=== PATIENT | male | born 1950 | race Hispanic/Latino ===

== ENCOUNTER 2023-07-03 11:07 | Observation (INO) | payer MEDICARE ==
[~2023-07-03] VITALS: Ht 165.1 cm; Wt 92.5 kg
[2023-07-03] MEDS ORDERED: SODIUM CHLORIDE 0.9% 1000ML 1,000 ML IV STA (12:21)
[2023-07-03 12:37] LABS: BASOPHILS # (AUTO) 0.1 (0.0-0.1); BASOPHILS % 0.3 % (0.0-1.0); EOSINOPHILS # (AUTO) 2.3 (0.0-0.4); EOSINOPHILS % 5.6 % (0.0-6.0); LYMPHOCYTES # (AUTO) 6.2 (1.0-3.2); LYMPHOCYTES % 15.4 % (18.0-39.1); MEAN CORPUSCULAR HEMOGLOBIN 31.5 pg (28-32); MEAN CORPUSCULAR HGB CONC 31.1 g/dL (31-35); MEAN CORPUSCULAR VOLUME 101.1 fL (81-99); MONOCYTES # (AUTO) 2.4 (0.2-0.8); MONOCYTES % 5.8 % (4.4-11.3); NEUTROPHILS # (AUTO) 21.1 (2.1-6.9); RED BLOOD COUNT 1.81 x10e6/uL (4.3-5.7); RED CELL DISTRIBUTION WIDTH 22.1 % (11.7-14.4); WHITE BLOOD COUNT 40.56 x10e3/uL (4.8-10.8)
[2023-07-03 12:38] LABS: HEMOGLOBIN 5.7 g/dL (14.0-18.0); PLATELET COUNT 45 x10e3/uL (140-360)
[2023-07-03 12:39] LABS: HEMATOCRIT 18.3 % (38.2-49.6)
[2023-07-03 12:49] LABS: INR 1.15; PROTHROMBIN TIME 14.9 seconds (11.9-14.5)
[2023-07-03 12:50] LABS: PARTIAL THROMBOPLASTIN TIME 28.7 seconds (23.8-35.5)
[2023-07-03 12:58] LABS: ANION GAP 11.4 mmol/L (8-16); CREATININE, SERUM 1.11 mg/dL (0.72-1.25); POTASSIUM 4.4 mmol/L (3.5-5.1)
[2023-07-03 12:59] LABS: ALBUMIN 4.1 g/dL (3.5-5.0); ALBUMIN/GLOBULIN RATIO 1.7 (0.8-2.0); BILIRUBIN,TOTAL 0.3 mg/dL (0.2-1.2); CALCIUM 8.8 mg/dL (8.4-10.2); MAGNESIUM 1.6 MG/DL (1.3-2.1); TOTAL PROTEIN 6.5 g/dL (6.5-8.1)
[2023-07-03 13:01] LABS: BACTERIA,URINE FEW /HPF; BILIRUBIN,URINE NEGATIVE (NEGATIVE); CLARITY,URINE CLEAR (CLEAR); COLOR,URINE YELLOW (YELLOW); EPITHELIAL CELLS,URINE FEW /LPF; GLUCOSE, URINE NEGATIVE (NEGATIVE); KETONES,URINE TRACE (NEGATIVE); LEUKOCYTE ESTERASE ,URINE NEGATIVE (NEGATIVE); NITRITE,URINE NEGATIVE (NEGATIVE); PH,URINE 5.5 (5 - 7); PROTEIN,URINE DIPSTICK NEGATIVE (NEGATIVE); RBC,URINE 0-5 /HPF (0-5); URINE UROBILINOGEN 1 mg/dL (0.2 - 1); WBC,URINE (MAN) 0-5 /HPF (0-5)
[2023-07-03 13:06] LABS: TROPONIN I 0.002 ng/mL (0-0.300)
[2023-07-03 13:31] LABS: FOLATE 15.5 ng/mL (7.0-15.4)
[2023-07-03 13:39] LABS: EOSINOPHILS % (MANUAL) 6 % (0-7); LYMPHOCYTES % (MANUAL) 11 % (19-48); METAMYELOCYTES % (MANUAL) 3 % (0-0); MONOCYTES % (MANUAL) 3 % (3.4-9.0); MYELOCYTES % (MANUAL) 6 % (0-0); NEUTROPHILS % (MANUAL) 68 % (40-74); NUCLEATED RED BLOOD CELLS 1; PLATELET ESTIMATE MARKEDLY DECREASED; PLATELET MORPHOLOGY COMMENT NORMAL; RBC MORPHOLOGY COMMENT NORMAL; REACTIVE LYMPHOCYTES 3
[2023-07-03 13:40] LABS: ANISOCYTOSIS SLIGHT; POIKILOCYTOSIS SLIGHT
[2023-07-03] MEDS ORDERED: SODIUM CHLORIDE 0.9% 250ML 250 ML ONE ×2 (14:29→18:52)
[2023-07-03] MEDS ORDERED: ONDANSETRON HCL INJ 2MG/ML 2ML 2 MG/ML VIAL IV PRN ×2 (14:45→17:15)
[2023-07-03] MEDS: SODIUM CHLORIDE 0.9% 1000ML 1,000 ML IV SCH (14:45)
[2023-07-03] MEDS ORDERED: DEXTROSE 50% SYRINGE 50 ML IV PRN (17:15)
[2023-07-03] MEDS ORDERED: ACETAMINOPHEN 325 MG TAB PO PRN (17:15)
[2023-07-03] MEDS ORDERED: CLONIDINE HCL 0.1 MG TAB PO PRN (17:15)
[2023-07-03 17:25] LABS: % IRON SATURATION 65 % (15-50); IRON 277 ug/dL (65-175); TOTAL IRON BINDING CAPACITY 427 ug/dL (261-478); TRANSFERRIN 305 mg/dL (174-364)
[2023-07-03 19:44] LABS: CREATINE KINASE 59 IU/L (30-200)
[2023-07-03 19:54] LABS: TROPONIN I < 0.001 ng/mL (0-0.300)
[2023-07-03] MEDS: INSULIN REGULAR, HUMAN 100 UNIT/1 ML SQ SCH (20:57)
[2023-07-03] MEDS ORDERED: SIMVASTATIN 20 MG TAB PO SCH (21:00)
[2023-07-03 22:00] VITALS: BP 133/73; PULSE 65; RESP 14; TEMP 98.4; O2SAT 100
[2023-07-04] MEDS ORDERED: SODIUM CHLORIDE 0.9% 250ML 250 ML ONE (00:54)
[2023-07-04] MEDS: SODIUM CHLORIDE 0.9% 1000ML 1,000 ML IV SCH (04:05)
[2023-07-04 05:13] VITALS: BP 140/71; PULSE 66; RESP 20; TEMP 98.2; O2SAT 100
[2023-07-04] MEDS ORDERED: SERTRALINE HCL50 MG PO (05:57)
[2023-07-04] MEDS ORDERED: VALACYCLOVIR1000 MG PO (05:57)
[2023-07-04] MEDS ORDERED: PIOGLITAZONE HC45 MG PO (05:57)
[2023-07-04] MEDS ORDERED: GLIPIZIDE ER10 MG PO (05:57)
[2023-07-04] MEDS ORDERED: METFORMIN HCL1000 MG PO (05:57)
[2023-07-04] MEDS ORDERED: BENZONATATE100 MG PO (05:57)
[2023-07-04] MEDS ORDERED: SIMVASTATIN20 MG PO (05:57)
[2023-07-04] MEDS ORDERED: PANTOPRAZOLE SO20 MG PO (05:57)
[2023-07-04] MEDS ORDERED: CLOPIDOGREL75 MG PO (05:57)
[2023-07-04] MEDS ORDERED: FENOFIBRATE48 MG PO (05:57)
[2023-07-04] MEDS ORDERED: JAKAFI20 MG (05:57)
[2023-07-04] MEDS ORDERED: ASPIRIN CHEW81 MG PO (05:57)
[2023-07-04] MEDS ORDERED: FUROSEMIDE20 MG PO (05:57)
[2023-07-04] MEDS ORDERED: OLMESARTAN MEDOX5 MG PO (05:57)
[2023-07-04 06:06] LABS: BASOPHILS % 0.1 % (0.0-1.0); EOSINOPHILS # (AUTO) 2.3 (0.0-0.4); EOSINOPHILS % 6.4 % (0.0-6.0); HEMATOCRIT 26.3 % (38.2-49.6); HEMOGLOBIN 8.9 g/dL (14.0-18.0); LYMPHOCYTES # (AUTO) 2.8 (1.0-3.2); LYMPHOCYTES % 7.7 % (18.0-39.1); MEAN CORPUSCULAR HEMOGLOBIN 32.6 pg (28-32); MEAN CORPUSCULAR HGB CONC 33.8 g/dL (31-35); MEAN CORPUSCULAR VOLUME 96.3 fL (81-99); MONOCYTES # (AUTO) 4.3 (0.2-0.8); NEUTROPHILS # (AUTO) 19.2 (2.1-6.9); NEUTROPHILS % 53.7 % (38.7-80.0); RED BLOOD COUNT 2.73 x10e6/uL (4.3-5.7); RED CELL DISTRIBUTION WIDTH 19.2 % (11.7-14.4); WHITE BLOOD COUNT 35.65 x10e3/uL (4.8-10.8)
[2023-07-04 06:10] LABS: PLATELET COUNT 35 x10e3/uL (140-360)
[2023-07-04 06:45] LABS: ALBUMIN 3.7 g/dL (3.5-5.0); ALBUMIN/GLOBULIN RATIO 1.6 (0.8-2.0); ANION GAP 9.8 mmol/L (8-16); BILIRUBIN,TOTAL 0.4 mg/dL (0.2-1.2); CALCIUM 8.4 mg/dL (8.4-10.2); CREATININE, SERUM 1.18 mg/dL (0.72-1.25); POTASSIUM 3.8 mmol/L (3.5-5.1)
[2023-07-04 07:14] LABS: TROPONIN I 0.009 ng/mL (0-0.300)
[2023-07-04] MEDS: INSULIN REGULAR, HUMAN 100 UNIT/1 ML SQ SCH ×2 (07:30→12:28)
[2023-07-04] MEDS ORDERED: OMEPRAZOLE 20 MG CAP PO SCH (07:30)
[2023-07-04 08:30] VITALS: BP 127/91; PULSE 62; RESP 20; TEMP 98.5; O2SAT 100
[2023-07-04 09:00] VITALS: BP 127/91; PULSE 62; RESP 20; TEMP 98.5; O2SAT 100
[2023-07-04] MEDS ORDERED: OLMESARTAN 20 MG TAB PO SCH (09:00)
[2023-07-04] MEDS ORDERED: CLOPIDOGREL BISULFATE 75 MG TAB PO SCH (09:00)
[2023-07-04] MEDS ORDERED: PIOGLITAZONE HCL 45 MG TAB PO SCH (09:00)
[2023-07-04] MEDS ORDERED: FUROSEMIDE 20 MG TAB PO SCH (09:00)
[2023-07-04] MEDS ORDERED: FENOFIBRATE 48 MG TAB PO SCH (09:00)
[2023-07-04] MEDS ORDERED: ONDANSETRON HCL 4 MG ORAL DISINTEGRATING TAB PO PRN (09:00)
[2023-07-04 09:04] LABS: BAND NEUTROPHILS % (MANUAL) 2 %; BLAST CELLS % MANUAL 6; EOSINOPHILS % (MANUAL) 8 % (0-7); LYMPHOCYTES % (MANUAL) 7 % (19-48); MONOCYTES % (MANUAL) 3 % (3.4-9.0); MYELOCYTES % (MANUAL) 5 % (0-0); NEUTROPHILS % (MANUAL) 68 % (40-74); REACTIVE LYMPHOCYTES 1
[2023-07-04 09:05] LABS: PLATELET ESTIMATE MARKEDLY DECREASED; PLATELET MORPHOLOGY COMMENT NORMAL; RBC MORPHOLOGY COMMENT NORMAL
[2023-07-04 12:07] VITALS: BP 122/74; PULSE 60; RESP 18; TEMP 98.8; O2SAT 100
== END 2023-07-04 14:00 | disposition home or self-care (01) ==
LOC: ER 11:11 → INTOOBSV 14:41 → ERHOLD 14:41 → MED/SURG2 22:00 → UNDODISIN 07-04 02:00
PROVIDERS: ADMIT Internal Medicine; ATTEND Internal Medicine
DX: C92.10 Chronic myeloid leukemia, BCR/ABL-positive, not having achieved remission (principal); D61.818 Other pancytopenia; D63.8 Anemia in other chronic diseases classified elsewhere; I10 Essential (primary) hypertension; E78.00 Pure hypercholesterolemia, unspecified; E11.9 Type 2 diabetes mellitus without complications; Z86.73 Personal history of transient ischemic attack (TIA), and cerebral infarction without residual deficits; K21.9 Gastro-esophageal reflux disease without esophagitis; Z11.52 Encounter for screening for COVID-19; Z79.02 Long term (current) use of antithrombotics/antiplatelets; Z79.82 Long term (current) use of aspirin; Z79.84 Long term (current) use of oral hypoglycemic drugs; Z79.899 Other long term (current) drug therapy; Z87.891 Personal history of nicotine dependence
CPT/HCPCS: 36415 ×2; 36430 ×2; 80053 ×2; 81001; 82550 ×2; 82607; 82746; 82948 ×2; 83540; 83735; 84466; 84484 ×2; 85025 ×2; 85610; 85730; 86850; 86900; 86920; 87040; 87086; 99284; C9113; G0378 ×2; J7030 ×2; J7050 ×2; P9016 ×2; U0002

== ENCOUNTER 2024-08-26 16:22 | Emergency (ER) | payer MEDICARE ==
[~2024-08-26] VITALS: Ht 165.1 cm; Wt 88.0 kg
[~2024-08-26 16:22] MED LIST: ASPIRIN CHEW81 MG PO; BENZONATATE100 MG PO; CLOPIDOGREL75 MG PO; FENOFIBRATE48 MG PO; FUROSEMIDE20 MG PO; GLIPIZIDE ER10 MG PO; JAKAFI20 MG; METFORMIN HCL1000 MG PO; OLMESARTAN MEDOX5 MG PO; PANTOPRAZOLE SO20 MG PO; PIOGLITAZONE HC45 MG PO; SERTRALINE HCL50 MG PO; SIMVASTATIN20 MG PO; VALACYCLOVIR1000 MG PO
[2024-08-26] MEDS: SODIUM CHLORIDE 0.9% 1000ML 2,000 ML IV STA (16:54)
[2024-08-26 16:59] LABS: BASOPHILS % 0.4 % (0.0-1.0); EOSINOPHILS # (AUTO) 0.1 (0.0-0.4); EOSINOPHILS % 0.9 % (0.0-6.0); LYMPHOCYTES # (AUTO) 0.8 (1.0-3.2); LYMPHOCYTES % 15.7 % (18.0-39.1); MEAN CORPUSCULAR HEMOGLOBIN 36.1 pg (28-32); MEAN CORPUSCULAR HGB CONC 34.4 g/dL (31-35); MEAN CORPUSCULAR VOLUME 104.9 fL (81-99); MONOCYTES # (AUTO) 0.6 (0.2-0.8); NEUTROPHILS # (AUTO) 3.8 (2.1-6.9); NEUTROPHILS % 71.4 % (38.7-80.0); PLATELET COUNT 80 x10e3/uL (140-360); RED BLOOD COUNT 3.05 x10e6/uL (4.3-5.7); RED CELL DISTRIBUTION WIDTH 14.6 % (11.7-14.4); WHITE BLOOD COUNT 5.28 x10e3/uL (4.8-10.8)
[2024-08-26 17:20] LABS: ALBUMIN 3.5 g/dL (3.5-5.0); ALBUMIN/GLOBULIN RATIO 1.9 (0.8-2.0); ANION GAP 15.7 mmol/L (8-16); BILIRUBIN,TOTAL 0.6 mg/dL (0.2-1.2); CREATININE, SERUM 1.76 mg/dL (0.72-1.25); POTASSIUM 3.7 mmol/L (3.5-5.1); TOTAL PROTEIN 5.3 g/dL (6.5-8.1)
[2024-08-26 17:26] LABS: TROPONIN I 0.006 ng/mL (0-0.300)
[2024-08-26 18:59] VITALS: PULSE 59; RESP 16; TEMP 97.9
[2024-08-26 19:40] VITALS: BP 134/74; PULSE 58; RESP 16; TEMP 97.5; O2SAT 97
== END 2024-08-26 19:41 | disposition home or self-care (01) ==
LOC: ER 16:45
DX: I95.9 Hypotension, unspecified (principal); E86.9 Volume depletion, unspecified; I10 Essential (primary) hypertension; E11.65 Type 2 diabetes mellitus with hyperglycemia; D64.9 Anemia, unspecified; E78.00 Pure hypercholesterolemia, unspecified; R94.31 Abnormal electrocardiogram [ECG] [EKG]
CPT/HCPCS: 36415; 71045; 80053; 82550; 83690; 83880; 84484; 85025; 93005; 99284; J7030

== ENCOUNTER 2024-10-01 13:20 | Emergency (ER) | payer MEDICARE ==
[~2024-10-01] VITALS: Ht 165.1 cm; Wt 88.0 kg
[2024-10-01 13:46] VITALS: PULSE 75; RESP 18; TEMP 98.2; O2SAT 97
[2024-10-01 14:11] LABS: BASOPHILS % 0.4 % (0.0-1.0); EOSINOPHILS # (AUTO) 0.1 (0.0-0.4); EOSINOPHILS % 1.5 % (0.0-6.0); HEMATOCRIT 29.5 % (38.2-49.6); HEMOGLOBIN 9.7 g/dL (14.0-18.0); LYMPHOCYTES % 22.8 % (18.0-39.1); MEAN CORPUSCULAR HEMOGLOBIN 34.3 pg (28-32); MEAN CORPUSCULAR HGB CONC 32.9 g/dL (31-35); MEAN CORPUSCULAR VOLUME 104.2 fL (81-99); MONOCYTES # (AUTO) 0.7 (0.2-0.8); MONOCYTES % 14.7 % (4.4-11.3); NEUTROPHILS # (AUTO) 2.8 (2.1-6.9); NEUTROPHILS % 60.2 % (38.7-80.0); PLATELET COUNT 101 x10e3/uL (140-360); RED BLOOD COUNT 2.83 x10e6/uL (4.3-5.7); RED CELL DISTRIBUTION WIDTH 14.8 % (11.7-14.4); WHITE BLOOD COUNT 4.57 x10e3/uL (4.8-10.8)
[2024-10-01 14:30] LABS: ALBUMIN 3.2 g/dL (3.5-5.0); ALBUMIN/GLOBULIN RATIO 1.2 (0.8-2.0); BILIRUBIN,TOTAL 0.9 mg/dL (0.2-1.2); CREATININE, SERUM 1.62 mg/dL (0.72-1.25); TOTAL PROTEIN 5.8 g/dL (6.5-8.1)
[2024-10-01 14:36] LABS: TROPONIN I 0.017 ng/mL (0-0.300)
== END 2024-10-01 15:40 | disposition home or self-care (01) ==
LOC: ER 14:06
DX: I95.9 Hypotension, unspecified (principal); I10 Essential (primary) hypertension; E11.65 Type 2 diabetes mellitus with hyperglycemia; D64.9 Anemia, unspecified; E78.00 Pure hypercholesterolemia, unspecified; R94.31 Abnormal electrocardiogram [ECG] [EKG]
CPT/HCPCS: 36415; 80053; 83880; 84484; 85025; 93005; 99283